=== PATIENT | male | born 1955 | race Caucasian/White ===

== ENCOUNTER 2022-05-24 21:06 | Emergency (ER) | payer MEDICARE, BC ==
[~2022-05-24] VITALS: Ht 185.4 cm; Wt 112.4 kg
[2022-05-24] MEDS ORDERED: ISOVUE-370 76% 100ML VIAL As Ordered ONE (21:34)
[2022-05-24 22:37] LABS: BASO % 0.3 % (0.0-1.0); EOS # 0.2 10^3/uL (0.0-0.5); EOS % 2.4 % (0.0-3.0); HEMATOCRIT 42.9 % (42.0-52.0); HEMOGLOBIN 13.6 g/dl (13.5-17.5); LYMPH # 3.1 10^3/uL (1.5-5.0); LYMPH % 33.1 % (24.0-44.0); MEAN CORPUSCULAR HEMOGLOBIN 28.6 pg (27.0-33.0); MEAN CORPUSCULAR HGB CONC 31.7 g/dl (32.0-36.5); MEAN CORPUSCULAR VOLUME 90.1 fl (80.0-96.0); MONO # 0.7 10^3/uL (0.0-0.8); MONO % 7.8 % (2.0-8.0); NEUTROPHILS # 5.2 10^3/uL (1.5-8.5); NEUTROPHILS % 56.2 % (36.0-66.0); PLATELET COUNT, AUTOMATED 212 10^3/uL (150-450); RED BLOOD COUNT 4.76 10^6/uL (4.30-6.10); WHITE BLOOD COUNT 9.3 10^3/uL (4.0-10.0)
[2022-05-24 22:47] LABS: INR 0.99; PROTHROMBIN TIME 13.5 SECONDS (12.7-14.5)
[2022-05-24 22:48] LABS: PARTIAL THROMBOPLASTIN TIME 28.3 SECONDS (25.9-37.0)
[2022-05-24 23:08] LABS: CK-MB VALUE MASS 3.2 NG/ML (<3.6); MB/CK RELATIVE INDEX 0.9 (< OR =4)
[2022-05-24] MEDS ORDERED: valACYclovir HCL 500 MG TAB PO ONE (23:25)
[2022-05-24] MEDS ORDERED: predniSONE 20 MG TAB PO ONE (23:25)
[2022-05-24] MEDS ORDERED: PRED20TA PO (23:29)
[2022-05-24] MEDS ORDERED: VALA1TAB5 PO (23:29)
[2022-05-24 23:56] VITALS: BP 155/84
== END 2022-05-25 | disposition home or self-care (01) ==
LOC: M ED 21:06
DX: G51.0 Bell's palsy (principal); R94.31 Abnormal electrocardiogram [ECG] [EKG]; E11.9 Type 2 diabetes mellitus without complications; I10 Essential (primary) hypertension; E78.5 Hyperlipidemia, unspecified; Z79.84 Long term (current) use of oral hypoglycemic drugs; Z91.013 Allergy to seafood; Z79.899 Other long term (current) drug therapy
CPT/HCPCS: 36415; 70450; 70496; 70498; 71045; 80047; 82550; 82553; 84484; 85025; 85610; 85730; 93005; 93041; 94760; 99285; J7512; Q9967

== ENCOUNTER → 2022-07-14 | Outpatient (CLI) | payer MEDICARE, BC ==
[~2022-07-14] MED LIST: PRED20TA PO; VALA1TAB5 PO
== END ==
LOC: M PLALAB 15:02
PROVIDERS: ATTEND Psychiatry & Neurology Neurology
DX: Z20.828 Contact with and (suspected) exposure to other viral communicable diseases (principal); G51.0 Bell's palsy